=== PATIENT | male | born 1935 | race Two or more races ===

== ENCOUNTER 2020-01-05 05:50 | Day surgery (SDC) | payer OTHER ==
[~2020-01-05 05:50] MED LIST: ARICEPT5 MG PO; ASPIR 8181 MG PO; CARTIA XT120 MG PO; CASODEX50 MG PO; DILTIAZEM ER120 M2 PO; LATANOPROST 0.7.5 ML OP; LOSARTAN POTASS50 MG PO; MILLIPRED5 MG PO
[2020-01-05] MEDS ORDERED: PERCOCET 5-3251 EACH PO (08:27)
[2020-01-05] MEDS ORDERED: RECTICARE30 GM TOP (08:28)
== END 2020-01-05 14:00 | disposition home or self-care (01) ==
LOC: CIR.AMB 05:50
PROVIDERS: ATTEND Surgery
DX: C21.8 Malignant neoplasm of overlapping sites of rectum, anus and anal canal (principal); C79.82 Secondary malignant neoplasm of genital organs